=== PATIENT | male | born 1975 | race Caucasian/White ===

== ENCOUNTER 2016-12-06 03:19 | Emergency (ER) | payer OTHER ==
[~2016-12-06] VITALS: Ht 198.1 cm; Wt 127.2 kg
[2016-12-06] MEDS ORDERED: CIPROFLOXACIN H10 ML BOTH EYES (06:09)
[2016-12-06 06:28] VITALS: BP 119/94
== END 2016-12-06 06:29 | disposition home or self-care (01) ==
LOC: EME 03:19
DX: T15.02XA Foreign body in cornea, left eye, initial encounter (principal); I10 Essential (primary) hypertension; Z87.891 Personal history of nicotine dependence
CPT/HCPCS: 99281; 99284

== ENCOUNTER 2017-05-07 09:49 | Day surgery (SDC) | payer OTHER ==
[~2017-05-07] VITALS: Ht 198.1 cm; Wt 124.7 kg
[~2017-05-07 09:49] MED LIST: CIPROFLOXACIN H10 ML BOTH EYES; FLEXERIL10 MG PO; HYZAAR 100-11 TABLET PO; MOBIC15 MG PO; MORPHABOND ER15 MG PO; NORVASC5 MG PO; PERCOCET 5/31 TABLET PO
== END 2017-05-07 11:30 | disposition home or self-care (01) ==
LOC: PAIN 09:49 → SDC 10:15 → PAIN 11:30
DX: M47.816 Spondylosis without myelopathy or radiculopathy, lumbar region (principal); M54.5 Low back pain; G89.29 Other chronic pain; I10 Essential (primary) hypertension; M17.0 Bilateral primary osteoarthritis of knee; E66.3 Overweight; Z68.34 Body mass index [BMI] 34.0-34.9, adult; Z87.891 Personal history of nicotine dependence
CPT/HCPCS: J1030; S0020